=== PATIENT | female | born 1950 | race Asian ===

== ENCOUNTER 2019-12-02 22:58 | Observation (INO) | payer MEDICARE, OTHER ==
[2019-12-03 01:24] VITALS: BMI 20.6
--- NOTE | 2019-12-03 01:53 | PDOC.HHP ---
Hospitalist HPI - History of Present Illness shortness of breath History of Present Illness: This is a 69 year old female with past medical history of ESRD secondary to polycystic kidney disease, hypertension who presented to outside ER with progressive shortness of breath. She has been short of breath for the past few days, however it has gotten worst to the point that moving in bed makes her short of breath. Patient reports having a pleural effusion for the past few months that comes and goes, however today it was much worst and her nurse told her to go to the emergency room. She has been doing peritoneal dialysis for the past one year, and over the last one week, she has noticed residuals of 100- 200 in her abdomen causing her abdomen to become more distended. She does peritoneal dialysis daily for 8 hours. The patient denies fevers, chills, cough, chest pain, constipation or diarrhea. She has bilateral shoulder pain, but no myalgias. She denies sick contacts, recent travel, runny nose or no sore throat. ED Course: The patient presented to [facility] with low grade temp of 99.7, oxygen saturation of 95% on room air, BP 150 systolic. Chest X ray showed large right pleural effusion. Abdominal X ray showed unremarkable bowel gas pattern. 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 denies: cough, sputum Cardiovascular: denies: chest pain, orthopnea Gastrointestinal: denies: nausea, vomiting, abdominal pain, diarrhea Genitourinary: denies: dysuria, frequency Musculoskeletal: reports: shoulder pain Skin: denies: rash, lesions Neurological: denies: weakness, numbness - Medication Medications: Coreg 12.5 mg po bid Lasix 80 mg daily Docusate 200 mg daily Amlodipine 10 mg po daily Famotidine Potassium 20 mg po bid Hospitalist History - Past Medical History Cardiac: reports: HTN Renal/: reports: Other (ESRD on peritoneal dialysis Polycystic kidney disease) - Past Surgical History Past Surgical History: reports: Cholecystectomy Other Surgical History: peritoneal dialysis catheter placement - Family History Other Family History: mother has polycystic kidney disease - Social History Smoking Status: Never smoker Alcohol: reports: None Drugs: reports: none Living Situation: Alone - Exam General Appearance: NAD, awake alert Eye: PERRL, anicteric sclera ENT: normocephalic atraumatic, no oropharyngeal lesions Neck: no JVD Heart: RRR, no murmur, no gallops, no rubs Respiratory - other findings: decreased breath sounds right upper and right lower lobe Gastrointestinal: soft Gastrointestinal - other findings: mild abdominal distension, no tenderness, guarding. PD catheter looks clean Extremities: no cyanosis, no clubbing, no edema Skin: normal turgor, no lesions, no rashes Neurological: cranial nerve grossly intact, normal sensation to touch, no focal deficits, no new deficit Musculoskeletal: normal tone, normal strength, no muscle wasting Psychiatric: normal affect, normal behavior, A&O x 3, oriented to person Hospitalist H&P A/P - Plan Plan: Chest X ray: large right pleural effusion. Cardiomegaly and mild vascular engorgement Abd X ray: unremarkable This is a 69 year old female with ESRD on peritoneal dialysis presenting with worsening shortness of breath, found to have large right pleural effusion. Also has issues with her peritoneal dialysis catheter output #Acute hypoxic respiratory failure secondary to pleural effusion #ESRD on peritoneal dialysis - chest X ray shows large right effusion. Abd X ray unremarkable. Will give dose of 40 mg IV lasix - patient wants pulmonary consult for thoracentesis, although explained this most likely may be from inadequate dialysis - WBC of 14, will order levaquin empirically Hypertension - continue metoprolol Hyponatremia - sodium 135, mild, continue to trend GI prophylaxis: home famotidine DVT prophylaxis: SCDS Code status: full code
[2019-12-03] MEDS ORDERED: Loperamide HCl 2 MG CAP PO PRN (01:56)
[2019-12-03] MEDS ORDERED: Bisacodyl 5 MG TAB PO PRN (01:56)
[2019-12-03] MEDS ORDERED: Ondansetron ODT 4 MG TAB PO PRN (01:56)
[2019-12-03] MEDS ORDERED: Calcium Carbonate 500 MG ChewTAB PO PRN (01:56)
[2019-12-03] MEDS ORDERED: Senokot S 8.6-50 MG TAB PO PRN (01:56)
[2019-12-03] MEDS ORDERED: Acetaminophen 325 MG TAB PO PRN (01:56)
--- NOTE | 2019-12-03 02:46 | PDOC.FMACP ---
Advance Care Planning - Note Participants: patient Summary: Advanced Care Planning was discussed. The diagnosis, prognosis and goals of care were discussed. Appropriate forms and documentation to accomplish the goals of care were discussed. All questions were answered. The Palliative Care Team will be engaged to assist with completion of any outstanding forms that are needed. Patient stated she would like to be full code in the event that she is unconscious or stops breathing Time Spent (mins): 30
[2019-12-03] MEDS ORDERED: Furosemide 40 MG/4 ML VIAL SLOW IVP SCH (03:00)
[2019-12-03 06:01] LABS: #Basophils 0.1 thou/uL (0.0-0.2); #Eosinphils 0.2 thou/uL (0.0-0.7); #Lymphocytes 1.4 thou/uL (1.20-3.40); #Monocytes 0.7 thou/uL (0.11-0.59); #Neutrophils 8.1 thou/uL (1.40-6.50); %Basophils 0.5 % (0.0-1.0); %Eosinophils 2.2 % (0.0-10.0); %Lymphocytes 12.9 % (21.0-51.0); %Monocytes 6.7 % (0.0-10.0); %Neutrophils 77.7 % (42.0-75.0); Hemoglobin 10.3 g/dL (12.0-16.0); Mean Corpuscular HGB CONC 33.7 g/dL (32.0-36.0); Mean Corpuscular Hemoglobin 31.5 pg (27.0-31.0); Mean Corpuscular Volume 93.4 fL (78.0-98.0); Mean Platelet Volume 7.1 fL (7.4-10.4); Platelet Count 273 thou/uL (130-400); RBC Distribution Width 12.8 % (11.5-14.5); Red Blood Cell (RBC) Count 3.29 mill/uL (4.20-5.40); White Blood Cell (WBC) Count 10.4 thou/uL (4.8-10.8)
[2019-12-03 06:07] LABS: Prothrombin Time 13.1 SEC (12.0-14.7)
[2019-12-03 06:08] LABS: PTT 35.9 SEC (22.9-36.1)
[2019-12-03 06:20] LABS: Anion Gap 20 mmol/L (10-20); BUN (Urea Nitrogen) 52 mg/dL (9.8-20.1); Calc. Creatinine Clearance 5 mL/min (70-130); Calcium 9.1 mg/dL (7.8-10.44); Carbon Dioxide 21 mmol/L (23-31); Chloride 98 mmol/L (98-107); Estimated GFR-MDRD 4; Glucose 131 mg/dL (80-115); Potassium 3.6 mmol/L (3.5-5.1); Sodium 135 mmol/L (136-145)
[2019-12-03] MEDS ORDERED: Docusate 100 MG CAP PO SCH (09:00)
[2019-12-03] MEDS ORDERED: Amlodipine 10 MG TAB PO SCH (09:00)
[2019-12-03] MEDS ORDERED: Famotidine 20 MG TAB PO SCH (09:00)
[2019-12-03] MEDS ORDERED: Sodium Chloride 0.9% 10 ML ONE (09:31)
--- NOTE | 2019-12-03 09:41 | CON ---
DATE OF CONSULTATION: 12/03/2019 This is 50 minutes of time, of that time greater than 50% spent with the patient and/or the patient's unit in the hospital. REASON FOR CONSULTATION: Right pleural effusion. HISTORY OF PRESENT ILLNESS: The patient is a 69-year-old female, who was brought in under ob status to the hospital for evaluation of shortness of breath related to a right pleural effusion. She has had a history of an effusion there in the past, but has never been big. She is a peritoneal dialysis patient. She has never been on hemodialysis. She has had no fever or chills. PAST MEDICAL HISTORY: 1. End-stage renal disease. 2. Polycystic kidney disease. PAST SURGICAL HISTORY: 1. Cholecystectomy. 2. PD catheter placement. FAMILY MEDICAL HISTORY: Polycystic kidney disease. SOCIAL HISTORY: Never smoker. Does not drink alcohol. Does not use illicit drugs. She lives in [place]. 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 MEDICATIONS: Prior to admission, 1. Lasix. 2. Docusate. 3. Amlodipine. 4. Famotidine. 5. Potassium. REVIEW OF SYSTEMS: Otherwise, negative. PHYSICAL EXAMINATION: VITAL SIGNS: Temperature 98.1, pulse 85, blood pressure 123/72, O2 saturation 95% on 2 L. GENERAL: She is awake, alert, in no distress. HEENT: Unremarkable. NECK: No adenopathy or JVD. LUNGS: Diminished breath sounds on right side, two-thirds the way up. Dullness to percussion, right side, two-thirds the way up. Left side clear. CARDIAC: S1 and S2, regular. ABDOMEN: Soft. Midline PD catheter noted. EXTREMITIES: No clubbing, cyanosis, or edema. LABORATORY DATA: White blood cell count 10, hematocrit 30, and platelet count 273. INR 1.0. Sodium 135, potassium 3.6, chloride 98, CO2 of 21, BUN 52, creatinine 8.9, and glucose 131. IMAGING DATA: Chest x-ray shows a massive right-sided pleural effusion. ASSESSMENT: Right pleural effusion, likely related to peritoneal dialysis with fluid movement across the diaphragm. PLAN: Diagnostic and therapeutic right thoracentesis. If the pleural fluid glucose is high, that is almost pathognomonic of effusion related to peritoneal dialysis. If this is the case, then she will likely need to be converted over to hemodialysis. Job ID: [id number]
[2019-12-03 10:24] LABS: RBC Count-Automated (BF) 0 /cumm; WBC/Nucleated-Auto (BF) 54 uL
[2019-12-03 10:45] LABS: Fluid, Triglycerides Less than 11 mg/dL (Not Available); Pleural Fluid, Amylase Less than 30 U/L (Not Available); Pleural Fluid, Glucose 216 mg/dL; Pleural Fluid, LDH Less than 25 U/L (Not Available); Pleural Fluid, Protein Less than 1.0 g/dL
[2019-12-03 11:08] LABS: BF Color Colorless; Body Fluid Source Thoracentesis Fluid; Clarity Clear (Clear); Tube # 3
[2019-12-03 11:10] LABS: BF Segmented Neutrophils 4 %
[2019-12-03 11:11] LABS: Cell Count Non Hematic 74 %; Eosinophils 20 %; Lymphocytes 1 %
--- NOTE | 2019-12-03 11:32 | PDOC.HOSPP ---
- Subjective Encounter Date: 12/03/19 Encounter Time: 11:28 Subjective: Ms. Edwards was seen today in follow-up of pleural effusion. She has had the thorocentesis performed and feels much better. She tells me she wants to go home. - Objective Vital Signs & Weight: Vital Signs (12 hours) Temp Pulse Resp BP BP Pulse Ox 12/03/19 07:59 98.1 F 85 16 123/72 95 12/03/19 07:40 98.1 F 85 16 123/72 95 12/03/19 04:00 97.5 F L 91 18 139/79 99 12/03/19 01:56 97.5 F L 76 18 133/75 94 L Weight Weight 120 lb 1.6 oz I&O: 12/02/19 12/03/19 12/04/19 06:59 06:59 06:59 Intake Total 240 Balance 240 Result Diagrams: 12/03/19 05:41 12/03/19 05:41 Hospitalist ROS - Medication Medications: Active Medications Generic Name Dose Route Start Last Admin Trade Name Steve PRN Reason Stop Dose Admin Amlodipine Besylate 10 mg 12/03/19 09:00 12/03/19 08:43 Norvasc PO Not Given DAILY GEOVANNY Docusate Sodium 200 mg 12/03/19 09:00 12/03/19 08:43 Colace PO 200 mg DAILY GEOVANNY Administration Famotidine 20 mg 12/03/19 09:00 12/03/19 08:43 Pepcid PO 20 mg DAILY GEOVANNY Administration Ondansetron HCl 4 mg 12/03/19 01:56 12/03/19 04:04 Zofran Odt PO 4 mg Q6H PRN Administration Nausea/Vomiting - Exam Eye: PERRL Heart: RRR, no murmur, no gallops, no rubs, normal peripheral pulses Respiratory: CTAB (+ decreased breath sounds in the right base, and some coarse breath sounds, otherwise ok) Gastrointestinal: soft, non-tender, non-distended, normal bowel sounds Extremities: no cyanosis, no edema Hosp A/P (1) Pleural effusion, right Code(s): J90 - PLEURAL EFFUSION, NOT ELSEWHERE CLASSIFIED Status: Acute (2) End-stage renal disease on peritoneal dialysis Code(s): N18.6 - END STAGE RENAL DISEASE; Z99.2 - DEPENDENCE ON RENAL DIALYSIS Status: Acute (3) Polycystic kidney disease Code(s): Q61.3 - POLYCYSTIC KIDNEY, UNSPECIFIED Status: Acute (4) Hypertension Code(s): I10 - ESSENTIAL (PRIMARY) HYPERTENSION Status: Acute - Plan * Right Pleural effusion- she is s/p thorocentesis. She would like to go home. * She does not want to change to peritoneal dialysis * Will check an X-ray to rule out pneumothorax, and then she can be discharged home.
--- NOTE | 2019-12-03 11:55 | OP ---
DATE OF PROCEDURE: 12/03/2019 PROCEDURE PERFORMED: Right thoracentesis. PREOPERATIVE DIAGNOSIS: Right pleural effusion. POSTOPERATIVE DIAGNOSIS: Right pleural effusion. ANESTHESIA: 1% lidocaine without epinephrine. DESCRIPTION OF PROCEDURE: Informed consent was obtained from the patient prior to the procedure. She understood the risks involved including bleeding, infection, and external pneumothorax. All questions were answered and she agreed to proceed. The patient was placed in the sitting position. The right posterior hemithorax was first identified by labeling it within an aura. The 5th and 6th interspace of the midscapular line was cleansed with chlorhexidine and draped sterilely. 1% lidocaine was used to anesthetize the insertion site between those ribs. A Menb-H-Mthcmwph catheter was placed into the pleural space. Approximately 2 L of clear slightly yellow-tinged pleural fluid was removed and sent for appropriate studies. The fluid had a typical peritoneal dialysis fluid appearance. She tolerated the procedure well. RECOMMENDATIONS: The patient will need to be converted to hemodialysis or this effusion will recur. Job ID: [id number]
--- NOTE | 2019-12-03 12:17 | RAD ---
RADIOGRAPH CHEST 2 VIEW: DATE: 12/03/2019 TIME: 12 6:00 PM HISTORY: 69-year-old female with right pleural effusion, status post thoracentesis COMPARISON: 12/02/2019 FINDINGS: The previously demonstrated very large right pleural effusion has significantly decreased in volume, currently occupying approximately 20-35% volume of the right hemithoracic cavity. The previously demonstrated no midline shift to the left of the mediastinum and heart, has resolved. There is a curvilinear thin border paralleling and overlapping the posterior aspect of the right thir d rib. There appear to be lung markings superior to this, and therefore it is uncertain whether this represents a skinfold or a tiny apical pneumothorax. Decrease in volume of the right pleural eff usion reveals a right perihilar infiltrate. Left lung is relatively clear. No left pleural effusion identified. No cardiomegaly. IMPRESSION: 1. Significant decrease in volume of right pleural effusion, now small, after right pleurocentesis. 2. Tiny right apical pneumothorax versus artifact. 3. Recommend upright inspiration and expiration frontal view chest radiograph.
[2019-12-03 12:37] VITALS: BP 132/65; TEMP 98.6
[2019-12-03] MEDS ORDERED: Metoprolol Tartrate 25 MG TAB PO SCH (21:00)
--- NOTE | 2019-12-04 10:27 | DIS ---
DATE OF ADMISSION: 12/03/2019 DATE OF DISCHARGE: 12/03/2019 DISCHARGE DISPOSITION: Home. DISCHARGE DIAGNOSES: 1. Large right pleural effusion. 2. End-stage renal disease, on peritoneal dialysis. 3. Polycystic kidney disease. 4. Hypertension. DISCHARGE MEDICATIONS: Include, 1. Potassium chloride 20 mEq twice daily. 2. Metoprolol 12.5 mg daily. 3. Furosemide 80 mg daily. 4. Dulcolax 200 mg daily. 5. Norvasc 10 mg daily. 6. Famotidine 1 capsule daily. CODE STATUS: Full code. ALLERGIES: NO KNOWN DRUG ALLERGIES. PROCEDURES DONE DURING ADMISSION: The patient had a therapeutic as well as diagnostic thoracentesis, the findings of which were consistent with an exudate. The patient had a clear colorless sample. White blood cell count was 54, only 4 neutrophils, 20% eosinophil. The LDH was less than 25, total protein less than 1, amylase less than 30, glucose was 216. Her serum total protein was 7.9. Serum albumin was 175, upper limit of normal was 130. HOSPITAL COURSE: Ms. Edwards is a pleasant 69-year-old female, who presented to the emergency room complaining of shortness of breath. She was evaluated in the ER and found to have a very large right pleural effusion. The patient says that she had a similar episode like this a little over a year ago. At that time, it was felt that the pleural effusion was related to her end-stage renal disease and the peritoneal dialysis. It appears as this is likely the cause of the pleural effusion on this admission as well. We discussed the possibility of considering changing or transitioning to hemodialysis. The patient did not like this idea and was not agreeable to this. She has a pediatric clinical nurse specialist in [place], Dr. Jony Kelsey and she would prefer to discuss this with him. After having the thoracentesis, she was feeling much better and was actually asking to go home. We will send the results of the thoracentesis to Dr. Kelsey and they can discuss whether to continue with peritoneal dialysis or transition to hemodialysis. Also, it was noted that the patient had a possible small pneumothorax on her chest x-ray post thoracentesis. This was reviewed by the fittings finisher and it was felt this is more likely to be either very small pneumothorax or artifact as mentioned by the radiologist. Job ID: [id number]
== END 2019-12-03 16:40 | disposition home or self-care (01) ==
LOC: ONC 12-03 00:50
PROVIDERS: ADMIT Internal Medicine; ATTEND Internal Medicine
PROC: 0W993ZZ Drainage of Right Pleural Cavity, Percutaneous Approach (ICD-10-PCS; principal; 2019-12-03)
DX: J90 Pleural effusion, not elsewhere classified (principal); J96.01 Acute respiratory failure with hypoxia; Q61.3 Polycystic kidney, unspecified; I12.0 Hypertensive chronic kidney disease with stage 5 chronic kidney disease or end stage renal disease; N18.6 End stage renal disease; E87.1 Hypo-osmolality and hyponatremia; Z79.899 Other long term (current) drug therapy; Z99.2 Dependence on renal dialysis
CPT/HCPCS: 32554; 71046; 80048; 82150; 82945; 83615; 83986; 84157; 84478; 85025; 85610; 85730; 87070; 87116; 87205; 87206 ×2; 88112; 89051; 96374; 97139; G0378; J1940; Q0162; 36415; 85060